=== PATIENT | male | born 1990 | race Caucasian/White ===

== ENCOUNTER 2018-09-15 09:25 | Day surgery (SDC) | payer MEDICAID ==
[~2018-09-15] VITALS: Ht 180.3 cm; Wt 56.7 kg
[~2018-09-15 09:25] MED LIST: CELEXA20 MG PO
[2018-09-15 10:09] VITALS: BP 97/58; Ht 180.3 cm; Wt 56.7 kg
--- NOTE | 2018-09-15 14:46 | OP ---
PATIENT NAME: KYRA GARCIA MEDICAL RECORD: [id number] :89 LOCATION:[facility] ADMISSION DATE: SURGEON: JUANA BARNES MD DATE OF OPERATION: 09/15/2018 SURGEON: Juana Barnes MD ANESTHESIA: General anesthesia by Jaylen Garcia CRNA. DIAGNOSIS: Male sterilization. PROCEDURE: Vasectomy. SPECIMENS: Right vas and left vas deferens. ESTIMATED BLOOD LOSS: None. CLINICAL HISTORY: This is a 28-year-old male. He has 2 children of his own and his girlfriend has one child of her own from another father. He does not want any more children. He is otherwise in good health. He does not have any medication allergies. 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 DESCRIPTION OF PROCEDURE: The patient was given induction of general anesthesia in supine position. He was then prepped and draped. The right vas deferens was easily identified. Towel clips were used to hold the vas deferens from migrating away from the scrotal skin. About 1 cm of the scrotal skin was incised along the line of the vas deferens. A 0.5% lidocaine with epinephrine was then injected into the wound for local anesthetic. The tunics were then cut down and using a Alex clamp we managed to get through the pedicle of the vas deferens. The tunics were stripped off the vas deferens. The proximal and distal extent of the vas deferens was clamped with hemostats. The intervening segment was then excised using a scalpel. The segment was sent to pathology for identification. The ends of the vas deferens were coagulated on each end. The ends were ligated using 2-0 Prolene. When we finished with coagulation of any extra bleeding vessels, the 2 vasal ends were then placed back into the hemiscrotum. The hemiscrotal skin was closed using simple interrupted 4-0 Vicryl. The identical procedure was repeated on the left side. Fluffs and mesh panties were then given to the patient. The patient will be seen in 2 weeks' time for followup. He is aware that he needs to continue to use contraception until we have a semen analysis at 4 weeks post-procedure showing azoospermia. TRANSINT:[id number] Voice Confirmation ID: [id number] DOCUMENT ID: [id number] JUANA BARNES MD at 1446 CC: [id number] DICTATION DATE: 09/15/18 1357 EXTENSION WORKER: 09/15/[address] [facility] [address] [place] [id number]
[2018-09-15] MEDS ORDERED: TYLENOL W/CODEI1 TAB PO (15:58)
== END 2018-09-15 16:30 | disposition home or self-care (01) ==
LOC: D.OPS 09:25 → D.PAN 10:35 → D.OPS 10:35
PROVIDERS: ATTEND Urology
DX: Z30.2 Encounter for sterilization (principal); Z01.812 Encounter for preprocedural laboratory examination

== ENCOUNTER → 2018-11-25 12:54 | Outpatient (CLI) | payer MEDICAID ==
[2018-09-15 10:09] VITALS: BMI 17.4
[~2018-11-25 12:54] MED LIST changes: +TYLENOL W/CODEI1 TAB PO
== END | disposition home or self-care (01) ==
LOC: D.LAB 12:54
PROVIDERS: ATTEND Urology
DX: Z48.816 Encounter for surgical aftercare following surgery on the genitourinary system (principal)